=== PATIENT | male | born 1945 | race African-American/Black ===

== ENCOUNTER → 2020-12-19 | Outpatient (CLI) | payer OTHER ==
--- NOTE | 2020-12-19 10:20 | 2DMMODE ---
[facility] [address] [place] [address] 2 D/M-MODE ECHOCARDIOGRAM Name: SHARA SEBASTIAN [facility] [id number] Admission: 12/19/20 Attend Phys: Ankur Caal Discharge: Date of : 49 Report #: [id number] THIS REPORT FOR: cc: Ankur Berg Jeffrey Edwin DO Lammoglia, Francisco J. MD ~ APPROVED REPORT Study performed: 12/19/2020 08:17:26 EXAM: Comprehensive 2D, Doppler, and color-flow Echocardiogram Patient Location: Out-Patient Room #: 2 Status: routine BSA: 2.03 HR: 75 bpm BP: 138/88 mmHg Rhythm: NSR Other Information Study Quality: Good Indications CAD 2D Dimensions RVDd: 31.09 mm IVSd: 8.11 (7-11mm) LVOT Diam: 20.20 (18-24mm) LVDd: 42.89 mm PWd: 8.51 (7-11mm) Ascending Ao: 29.76 (22-36mm) LVDs: 29.72 (25-40mm) Left Atrium: 34.04 (27-40mm) Aortic Root: 31.45 mm IVC: 15.00 mm Volumes Left Atrial Volume (Systole) Single Plane 4CH: 36.29 mL Single Plane 2CH: 35.58 mL LA ESV Index: 20.00 mL/m2 Aortic Valve AoV Peak Tahir.: 1.26 m/s AO Peak Gr.: 6.36 mmHg LVOT Max P.82 mmHg LVOT Max V: 0.98 m/s JOSLYN Vmax: 2.48 cm2 [facility] [address] [place] [address] 2 D/M-MODE ECHOCARDIOGRAM Name: SHARA SEBASTIAN JR Room #: REG [facility]#: [id number] Admission: 12/19/20 Attend Phys: Ankur Lucas Discharge: Date of : 49 Report #: [id number] Mitral Valve E/A Ratio: 1.1 MV Decel. Time: 193.98 ms MV E Max Tahir.: 0.86 m/s MV A Tahir.: 0.79 m/s MV PHT: 56.25 ms IVRT: 119.95 ms Pulmonary Valve PV Peak Tahir.: 0.83 m/s PV Peak Gr.: 2.77 mmHg Pulmonary Vein P Vein S: 0.73 m/s P Vein A: 0.31 m/s P Vein D: 0.43 m/s P Vein A Dur.: 87.7 msec P Vein S/D Ratio: 1.70 Left Ventricle The left ventricle is normal size. There is normal LV segmental wall motion. There is normal left ventricular wall thickness. The left ventricular systolic function is normal. The left ventricular ejection fraction is within the normal range. LVEF is 55-60%. Grade I - abnormal relaxation pattern. Right Ventricle The right ventricle is normal size. The right ventricular systolic function is normal. Atria The left atrium size is normal. The right atrium size is normal. Aortic Valve The aortic valve is normal in structure. The Aortic valve is sclerotic. Trace aortic regurgitation. There is no aortic valvular stenosis. Mitral Valve The mitral valve is normal in structure. There is no mitral valve regurgitation noted. No evidence of mitral valve stenosis. Tricuspid Valve The tricuspid valve is normal in structure. There is no tricuspid valve regurgitation noted. Pulmonic Valve [facility] [address] [place] [address] 2 D/M-MODE ECHOCARDIOGRAM Name: SHARA SEBASTIAN Room #: REG [facility]#: [id number] Admission: 12/19/20 Attend Phys: Ankur Lucas Discharge: Date of : 49 Report #: [id number] The pulmonary valve is normal in structure. There is no pulmonic valvular regurgitation. Great Vessels The aortic root is normal in size. IVC is normal in size and collapses >50% with inspiration. Pericardium There is no pericardial effusion. <Conclusion> The left ventricle is normal size. The left ventricle is normal size. There is normal LV segmental wall motion. LVEF is 55-60%. The right ventricle is normal size. The left atrium size is normal. The aortic valve is normal in structure. The Aortic valve is sclerotic. Trace aortic regurgitation. The mitral valve is normal in structure. The tricuspid valve is normal in structure. The pulmonary valve is normal in structure. The aortic root is normal in size. There is no pericardial effusion. <ELECTRONICALLY SIGNED> By: Arnav Byrd MD 12/19/20 1020 1020 1020 Arnav Byrd MD /INF
== END ==
LOC: CV 08:52
PROVIDERS: ATTEND Chiropractor
DX: I25.10 Atherosclerotic heart disease of native coronary artery without angina pectoris (principal)